=== PATIENT | female | born 1950 | race Caucasian/White ===

== ENCOUNTER 2017-12-26 19:31 | Inpatient (IN) | payer BC ==
[~2017-12-26] VITALS: Ht 157.5 cm; Wt 60.1 kg
[2017-12-26 20:00] VITALS: BP 105/55
[2017-12-26] MEDS ORDERED: ONDANSETRON HCL 4MG TABLET PO PRN (20:15)
[2017-12-26] MEDS: POLYETHYLENE GLYCOL 3350 (17GM) 1 DOSE PACK PO SCH (21:00)
[2017-12-26] MEDS: CLOTRIMAZOLE 1% CREAM 30GM TOP SCH (21:00)
[2017-12-26] MEDS: GUAIFENESIN 600MG ER TABLET PO SCH (22:56)
[2017-12-27] MEDS: IPRATROPIUM/ALBUTEROL 0.5-3(2.5)MG/3ML NEB HHN SCH ×6 (00:11→20:44)
[2017-12-27 07:29] LABS: HEMATOCRIT 41.5 % (36.0-48.0); MEAN CORPUSCULAR HEMOGLOBIN 29.5 pg (28.0-32.0); MEAN CORPUSCULAR VOLUME 87.1 fL (81.0-99.0); PLATELET 150 x1000/uL (130-400); RED BLOOD CELL COUNT 4.76 mill/uL (4.2-5.4); RED CELL DISTRIBUTION WIDTH 13.9 % (11.6-14.6)
[2017-12-27 08:00] VITALS: BP 105/61
[2017-12-27 08:07] LABS: CHLORIDE 104 mEq/L (98-107)
[2017-12-27 08:31] LABS: PREALBUMIN 28.4 mg/dL (20.0-40.0)
[2017-12-27] MEDS ORDERED: FUROSEMIDE 40MG/4ML VIAL IVP SCH (09:00)
[2017-12-27] MEDS: GUAIFENESIN 600MG ER TABLET PO SCH ×2 (09:17→22:17)
[2017-12-27] MEDS: DOCUSATE SODIUM 100MG CAPSULE PO SCH ×2 (09:17→17:56)
[2017-12-27] MEDS: POTASSIUM CHLORIDE 20MEQ/PACKET PO SCH (09:19)
[2017-12-27] MEDS: CLOTRIMAZOLE 1% CREAM 30GM TOP SCH ×2 (09:21→22:17)
[2017-12-27] MEDS: LEVOFLOXACIN 500MG TABLET PO SCH (11:04)
[2017-12-27 11:42] LABS: CLARITY URINE CLEAR (CLEAR); COLOR URINE YELLOW (YELLOW); KETONES URINE NEGATIVE (NEGATIVE); LEUKOCYTE ESTERASE URINE NEGATIVE (NEGATIVE); NITRITE URINE NEGATIVE (NEGATIVE); OCCULT BLOOD URINE 2+ (NEGATIVE); PH URINE 6.5 (4.5-8.0); PROTEIN URINE NEGATIVE (NEGATIVE); SPECIFIC GRAVITY URINE 1.012 (1.005-1.030); UROBILINOGEN URINE 0.2 E.U./dL (0.2-1.0)
[2017-12-27] MEDS: CARBIDOPA/LEVODOPA 25/100MG TABLET PO SCH ×2 (13:34→22:00)
[2017-12-27] MEDS ORDERED: POTASSIUM CHLORIDE 20MEQ TABLET SR PO SCH (14:00)
[2017-12-27] MEDS: ACETAMINOPHEN 500MG TABLET PO PRN (18:16)
[2017-12-27 20:00] VITALS: BP 99/57
[2017-12-27] MEDS: POLYETHYLENE GLYCOL 3350 (17GM) 1 DOSE PACK PO SCH (21:00)
[2017-12-28] MEDS: IPRATROPIUM/ALBUTEROL 0.5-3(2.5)MG/3ML NEB HHN SCH ×7 (00:39→23:51)
[2017-12-28] MEDS: CARBIDOPA/LEVODOPA 25/100MG TABLET PO SCH ×3 (06:00→22:00)
[2017-12-28 06:58] LABS: BASOPHILS % 0.8 % (0.0-2.0); EOSINOPHILS % 2.9 % (0.0-5.0); HEMATOCRIT. 41.6 % (36.0-48.0); HEMOGLOBIN. 14.1 g/dL (12.0-16.0); LYMPHOCYTES % 23.3 % (20.0-50.0); MEAN CORPUSCULAR HEMOGLOBIN 29.4 pg (28.0-32.0); MEAN PLATELET VOLUME 8.8 fl (7.4-10.4); MONOCYTES % 6.4 % (2.0-8.0); NEUTROPHILS % 66.6 % (40.0-76.0); PLATELET 161 x1000/uL (130-400); RED BLOOD CELL COUNT 4.79 mill/uL (4.2-5.4); RED CELL DISTRIBUTION WIDTH 13.7 % (11.6-14.6)
[2017-12-28 08:00] VITALS: BP 102/65
[2017-12-28 08:02] LABS: CHLORIDE 104 mEq/L (98-107)
[2017-12-28 08:17] LABS: FOLIC ACID (FOLATE) SERUM 11.3 ng/mL (>5.38)
[2017-12-28 08:35] LABS: HDL CHOLESTEROL 70 mg/dL (40-59)
[2017-12-28 08:36] LABS: PHOSPHORUS 3.8 mg/dL (2.5-4.9)
[2017-12-28 08:37] LABS: LDL CHOLESTEROL 77 mg/dL (5-100)
[2017-12-28 08:38] LABS: TOTAL IRON BINDING CAPACITY 245 ug/dL (250-450)
[2017-12-28] MEDS: ACETAMINOPHEN 500MG TABLET PO PRN (09:13)
[2017-12-28] MEDS: GUAIFENESIN 600MG ER TABLET PO SCH ×3 (09:13→21:41)
[2017-12-28] MEDS: DOCUSATE SODIUM 100MG CAPSULE PO SCH ×2 (09:13→16:21)
[2017-12-28] MEDS: POTASSIUM CHLORIDE 20MEQ/PACKET PO SCH (09:14)
[2017-12-28] MEDS: CLOTRIMAZOLE 1% CREAM 30GM TOP SCH ×2 (09:18→21:42)
[2017-12-28] MEDS: LEVOFLOXACIN 500MG TABLET PO SCH (11:26)
[2017-12-28] MEDS: CYANOCOBALAMIN 1000MCG/ML VIAL IM SCH (15:37)
[2017-12-28] MEDS: LIDOCAINE 5% PATCH TOP SCH (15:43)
[2017-12-28] MEDS: METHYL SALICYLATE/MENTHOL CREAM 85GM TOP SCH ×3 (15:44→21:42)
[2017-12-28 20:00] VITALS: BP 99/51
[2017-12-28] MEDS: POLYETHYLENE GLYCOL 3350 (17GM) 1 DOSE PACK PO SCH (21:00)
[2017-12-29] MEDS: IPRATROPIUM/ALBUTEROL 0.5-3(2.5)MG/3ML NEB HHN SCH ×5 (04:00→21:15)
[2017-12-29] MEDS: CARBIDOPA/LEVODOPA 25/100MG TABLET PO SCH ×3 (06:00→22:00)
[2017-12-29 07:41] LABS: T4 FREE 1.21 ng/dL (0.76-1.46)
[2017-12-29 08:00] VITALS: BP 107/51
[2017-12-29] MEDS: CLOTRIMAZOLE 1% CREAM 30GM TOP SCH ×2 (08:54→23:06)
[2017-12-29] MEDS: GUAIFENESIN 600MG ER TABLET PO SCH ×2 (08:54→23:05)
[2017-12-29] MEDS: POTASSIUM CHLORIDE 20MEQ/PACKET PO SCH (08:54)
[2017-12-29] MEDS: CYANOCOBALAMIN 1000MCG/ML VIAL IM SCH (08:54)
[2017-12-29] MEDS: DOCUSATE SODIUM 100MG CAPSULE PO SCH ×2 (08:54→16:29)
[2017-12-29] MEDS: LIDOCAINE 5% PATCH TOP SCH (08:56)
[2017-12-29] MEDS: METHYL SALICYLATE/MENTHOL CREAM 85GM TOP SCH ×3 (09:00→21:00)
[2017-12-29] MEDS ORDERED: BISACODYL 10MG SUPP PR SCH (09:45)
[2017-12-29] MEDS ORDERED: LACTULOSE 20G/30ML UDC PO SCH (10:00)
[2017-12-29 20:00] VITALS: BP 96/49
[2017-12-29] MEDS: POLYETHYLENE GLYCOL 3350 (17GM) 1 DOSE PACK PO SCH (21:00)
[2017-12-30] MEDS: IPRATROPIUM/ALBUTEROL 0.5-3(2.5)MG/3ML NEB HHN SCH ×6 (00:44→21:14)
[2017-12-30] MEDS: CARBIDOPA/LEVODOPA 25/100MG TABLET PO SCH ×3 (06:00→21:42)
[2017-12-30 08:29] VITALS: BP 109/61
[2017-12-30] MEDS: GUAIFENESIN 600MG ER TABLET PO SCH ×2 (08:43→21:42)
[2017-12-30] MEDS: DOCUSATE SODIUM 100MG CAPSULE PO SCH ×2 (08:43→17:05)
[2017-12-30] MEDS: CYANOCOBALAMIN 1000MCG/ML VIAL IM SCH (08:44)
[2017-12-30] MEDS: CLOTRIMAZOLE 1% CREAM 30GM TOP SCH ×2 (08:44→21:47)
[2017-12-30] MEDS: POTASSIUM CHLORIDE 20MEQ/PACKET PO SCH (08:44)
[2017-12-30] MEDS: METHYL SALICYLATE/MENTHOL CREAM 85GM TOP SCH ×3 (08:45→21:00)
[2017-12-30] MEDS: LIDOCAINE 5% PATCH TOP SCH (08:46)
[2017-12-30 20:00] VITALS: BP 97/50
[2017-12-30] MEDS: POLYETHYLENE GLYCOL 3350 (17GM) 1 DOSE PACK PO SCH (21:00)
[2017-12-31] MEDS: IPRATROPIUM/ALBUTEROL 0.5-3(2.5)MG/3ML NEB HHN SCH ×6 (00:17→20:01)
[2017-12-31] MEDS: CARBIDOPA/LEVODOPA 25/100MG TABLET PO SCH ×3 (06:04→22:13)
[2017-12-31 08:00] VITALS: BP 107/60
[2017-12-31] MEDS: GUAIFENESIN 600MG ER TABLET PO SCH ×2 (08:11→22:13)
[2017-12-31] MEDS: DOCUSATE SODIUM 100MG CAPSULE PO SCH ×2 (08:11→16:53)
[2017-12-31] MEDS: CYANOCOBALAMIN 1000MCG/ML VIAL IM SCH (08:11)
[2017-12-31] MEDS: CLOTRIMAZOLE 1% CREAM 30GM TOP SCH ×2 (08:12→22:18)
[2017-12-31] MEDS: POTASSIUM CHLORIDE 20MEQ/PACKET PO SCH (08:12)
[2017-12-31] MEDS: METHYL SALICYLATE/MENTHOL CREAM 85GM TOP SCH ×3 (08:13→21:00)
[2017-12-31] MEDS: LIDOCAINE 5% PATCH TOP SCH (09:39)
[2017-12-31 20:00] VITALS: BP 98/56
[2017-12-31] MEDS: POLYETHYLENE GLYCOL 3350 (17GM) 1 DOSE PACK PO SCH (21:00)
[2018-01-01] MEDS: IPRATROPIUM/ALBUTEROL 0.5-3(2.5)MG/3ML NEB HHN SCH ×6 (01:34→21:07)
[2018-01-01] MEDS: CARBIDOPA/LEVODOPA 25/100MG TABLET PO SCH ×3 (06:40→21:09)
[2018-01-01 06:58] LABS: BASOPHILS % 1.2 % (0.0-2.0); EOSINOPHILS % 2.8 % (0.0-5.0); HEMATOCRIT. 38.8 % (36.0-48.0); HEMOGLOBIN. 13.2 g/dL (12.0-16.0); LYMPHOCYTES % 22.9 % (20.0-50.0); MEAN CORPUSCULAR HEMOGLOBIN 29.8 pg (28.0-32.0); MEAN CORPUSCULAR VOLUME 87.6 fL (81.0-99.0); MEAN PLATELET VOLUME 8.5 fl (7.4-10.4); MONOCYTES % 7.1 % (2.0-8.0); PLATELET 152 x1000/uL (130-400); RED BLOOD CELL COUNT 4.43 mill/uL (4.2-5.4); RED CELL DISTRIBUTION WIDTH 13.7 % (11.6-14.6)
[2018-01-01 07:20] LABS: CHLORIDE 110 mEq/L (98-107)
[2018-01-01 08:00] VITALS: BP 98/59
[2018-01-01] MEDS: METHYL SALICYLATE/MENTHOL CREAM 85GM TOP SCH ×3 (09:00→21:00)
[2018-01-01] MEDS: CLOTRIMAZOLE 1% CREAM 30GM TOP SCH ×2 (09:01→21:10)
[2018-01-01] MEDS: GUAIFENESIN 600MG ER TABLET PO SCH ×2 (09:01→21:09)
[2018-01-01] MEDS: POTASSIUM CHLORIDE 20MEQ/PACKET PO SCH (09:01)
[2018-01-01] MEDS: DOCUSATE SODIUM 100MG CAPSULE PO SCH ×2 (09:01→17:22)
[2018-01-01] MEDS: LIDOCAINE 5% PATCH TOP SCH (09:02)
[2018-01-01 20:00] VITALS: BP 97/55
[2018-01-01] MEDS: POLYETHYLENE GLYCOL 3350 (17GM) 1 DOSE PACK PO SCH (21:00)
[2018-01-02] MEDS: IPRATROPIUM/ALBUTEROL 0.5-3(2.5)MG/3ML NEB HHN SCH ×6 (00:58→19:56)
[2018-01-02] MEDS: CARBIDOPA/LEVODOPA 25/100MG TABLET PO SCH ×3 (05:08→21:50)
[2018-01-02 08:00] VITALS: BP 107/51
[2018-01-02] MEDS: DOCUSATE SODIUM 100MG CAPSULE PO SCH ×2 (08:26→17:32)
[2018-01-02] MEDS: POTASSIUM CHLORIDE 20MEQ/PACKET PO SCH (08:26)
[2018-01-02] MEDS: GUAIFENESIN 600MG ER TABLET PO SCH ×2 (08:26→21:50)
[2018-01-02] MEDS: LIDOCAINE 5% PATCH TOP SCH (08:35)
[2018-01-02] MEDS: METHYL SALICYLATE/MENTHOL CREAM 85GM TOP SCH ×3 (08:36→21:00)
[2018-01-02] MEDS: CLOTRIMAZOLE 1% CREAM 30GM TOP SCH ×2 (08:36→21:51)
[2018-01-02 20:00] VITALS: BP 98/52
[2018-01-02] MEDS: POLYETHYLENE GLYCOL 3350 (17GM) 1 DOSE PACK PO SCH (21:00)
[2018-01-03] MEDS: IPRATROPIUM/ALBUTEROL 0.5-3(2.5)MG/3ML NEB HHN SCH ×6 (00:21→20:17)
[2018-01-03] MEDS: CARBIDOPA/LEVODOPA 25/100MG TABLET PO SCH ×3 (05:37→22:31)
[2018-01-03 08:00] VITALS: BP 103/60
[2018-01-03] MEDS: METHYL SALICYLATE/MENTHOL CREAM 85GM TOP SCH ×3 (09:00→21:00)
[2018-01-03] MEDS: CLOTRIMAZOLE 1% CREAM 30GM TOP SCH ×2 (09:21→22:31)
[2018-01-03] MEDS: GUAIFENESIN 600MG ER TABLET PO SCH ×2 (09:21→22:30)
[2018-01-03] MEDS: DOCUSATE SODIUM 100MG CAPSULE PO SCH ×2 (09:21→17:00)
[2018-01-03] MEDS: POTASSIUM CHLORIDE 20MEQ/PACKET PO SCH (09:21)
[2018-01-03] MEDS: LIDOCAINE 5% PATCH TOP SCH (09:22)
[2018-01-03 17:08] LABS: 25-HYDROXY VITAMIN D3 24 ng/mL (.)
[2018-01-03 20:00] VITALS: BP 97/57
[2018-01-03] MEDS: POLYETHYLENE GLYCOL 3350 (17GM) 1 DOSE PACK PO SCH (21:00)
[2018-01-04] MEDS: IPRATROPIUM/ALBUTEROL 0.5-3(2.5)MG/3ML NEB HHN SCH ×5 (00:57→20:25)
[2018-01-04] MEDS: CARBIDOPA/LEVODOPA 25/100MG TABLET PO SCH ×3 (05:52→21:58)
[2018-01-04 08:00] VITALS: BP 102/58
[2018-01-04] MEDS: DOCUSATE SODIUM 100MG CAPSULE PO SCH ×3 (09:00→17:00)
[2018-01-04] MEDS: METHYL SALICYLATE/MENTHOL CREAM 85GM TOP SCH ×3 (09:00→21:00)
[2018-01-04] MEDS: GUAIFENESIN 600MG ER TABLET PO SCH ×2 (09:25→21:58)
[2018-01-04] MEDS: POTASSIUM CHLORIDE 20MEQ/PACKET PO SCH (09:25)
[2018-01-04] MEDS: LIDOCAINE 5% PATCH TOP SCH (09:27)
[2018-01-04] MEDS: CLOTRIMAZOLE 1% CREAM 30GM TOP SCH ×2 (09:27→21:59)
[2018-01-04] MEDS ORDERED: ERGOCALCIFEROL 50000UNITS CAPSULE PO SCH (14:15)
[2018-01-04 20:00] VITALS: BP 110/67
[2018-01-04] MEDS: POLYETHYLENE GLYCOL 3350 (17GM) 1 DOSE PACK PO SCH (21:00)
[2018-01-05] MEDS: CARBIDOPA/LEVODOPA 25/100MG TABLET PO SCH ×3 (06:33→21:10)
[2018-01-05 07:00] LABS: BASOPHILS % 0.9 % (0.0-2.0); EOSINOPHILS % 2.5 % (0.0-5.0); HEMATOCRIT. 37.4 % (36.0-48.0); HEMOGLOBIN. 12.7 g/dL (12.0-16.0); LYMPHOCYTES % 17.4 % (20.0-50.0); MEAN CORPUSCULAR HEMOGLOBIN 29.8 pg (28.0-32.0); MEAN CORPUSCULAR VOLUME 87.7 fL (81.0-99.0); MEAN PLATELET VOLUME 8.2 fl (7.4-10.4); NEUTROPHILS % 73.2 % (40.0-76.0); PLATELET 154 x1000/uL (130-400); RED BLOOD CELL COUNT 4.27 mill/uL (4.2-5.4); RED CELL DISTRIBUTION WIDTH 13.7 % (11.6-14.6)
[2018-01-05 07:04] LABS: CHLORIDE 108 mEq/L (98-107)
[2018-01-05 08:00] VITALS: BP 114/65
[2018-01-05] MEDS: GUAIFENESIN 600MG ER TABLET PO SCH ×2 (09:00→21:10)
[2018-01-05] MEDS: METHYL SALICYLATE/MENTHOL CREAM 85GM TOP SCH ×3 (09:00→21:00)
[2018-01-05] MEDS: DOCUSATE SODIUM 100MG CAPSULE PO SCH ×2 (09:00→17:36)
[2018-01-05] MEDS: LIDOCAINE 5% PATCH TOP SCH (09:01)
[2018-01-05] MEDS: CLOTRIMAZOLE 1% CREAM 30GM TOP SCH ×2 (09:01→21:31)
[2018-01-05] MEDS: POTASSIUM CHLORIDE 20MEQ/PACKET PO SCH (09:01)
[2018-01-05] MEDS: IPRATROPIUM/ALBUTEROL 0.5-3(2.5)MG/3ML NEB HHN SCH ×4 (11:23→21:39)
[2018-01-05 14:15] LABS: CLARITY URINE CLEAR (CLEAR); COLOR URINE YELLOW (YELLOW); KETONES URINE NEGATIVE (NEGATIVE); LEUKOCYTE ESTERASE URINE TRACE (NEGATIVE); NITRITE URINE NEGATIVE (NEGATIVE); OCCULT BLOOD URINE 1+ (NEGATIVE); PH URINE 5.5 (4.5-8.0); PROTEIN URINE NEGATIVE (NEGATIVE); SPECIFIC GRAVITY URINE 1.015 (1.005-1.030); UROBILINOGEN URINE 0.2 E.U./dL (0.2-1.0)
[2018-01-05 20:00] VITALS: BP 97/53
[2018-01-05] MEDS: POLYETHYLENE GLYCOL 3350 (17GM) 1 DOSE PACK PO SCH (21:00)
[2018-01-06] MEDS: CARBIDOPA/LEVODOPA 25/100MG TABLET PO SCH ×3 (05:08→21:03)
[2018-01-06 08:00] VITALS: BP 107/58
[2018-01-06] MEDS: METHYL SALICYLATE/MENTHOL CREAM 85GM TOP SCH ×3 (09:00→21:00)
[2018-01-06] MEDS: IPRATROPIUM/ALBUTEROL 0.5-3(2.5)MG/3ML NEB HHN SCH ×5 (09:33→19:54)
[2018-01-06] MEDS: POTASSIUM CHLORIDE 20MEQ/PACKET PO SCH (09:40)
[2018-01-06] MEDS: DOCUSATE SODIUM 100MG CAPSULE PO SCH ×2 (09:40→17:49)
[2018-01-06] MEDS: GUAIFENESIN 600MG ER TABLET PO SCH ×2 (09:40→21:03)
[2018-01-06] MEDS: LIDOCAINE 5% PATCH TOP SCH (09:41)
[2018-01-06] MEDS: OXYBUTYNIN CHLORIDE 5MG TABLET PO SCH ×2 (09:47→21:03)
[2018-01-06] MEDS: CLOTRIMAZOLE 1% CREAM 30GM TOP SCH ×2 (09:48→21:04)
[2018-01-06 20:00] VITALS: BP 99/55
[2018-01-06] MEDS: POLYETHYLENE GLYCOL 3350 (17GM) 1 DOSE PACK PO SCH (21:00)
[2018-01-06] MEDS ORDERED: IPRATROPIUM/ALBUTEROL 0.5-3(2.5)MG/3ML NEB HHN PRN (21:00)
[2018-01-07] MEDS: CARBIDOPA/LEVODOPA 25/100MG TABLET PO SCH ×3 (05:14→22:22)
[2018-01-07 08:00] VITALS: BP 92/46
[2018-01-07] MEDS: DOCUSATE SODIUM 100MG CAPSULE PO SCH ×2 (10:47→18:55)
[2018-01-07] MEDS: OXYBUTYNIN CHLORIDE 5MG TABLET PO SCH ×2 (10:48→22:22)
[2018-01-07] MEDS: GUAIFENESIN 600MG ER TABLET PO SCH ×2 (10:48→22:22)
[2018-01-07] MEDS: POTASSIUM CHLORIDE 20MEQ/PACKET PO SCH (10:48)
[2018-01-07] MEDS: LIDOCAINE 5% PATCH TOP SCH (12:05)
[2018-01-07] MEDS: METHYL SALICYLATE/MENTHOL CREAM 85GM TOP SCH ×3 (12:06→21:00)
[2018-01-07] MEDS: CLOTRIMAZOLE 1% CREAM 30GM TOP SCH ×2 (12:06→22:24)
[2018-01-07] MEDS: IPRATROPIUM/ALBUTEROL 0.5-3(2.5)MG/3ML NEB HHN SCH ×2 (12:07→21:30)
[2018-01-07] MEDS ORDERED: LACTULOSE 20G/30ML UDC PO SCH (13:00)
[2018-01-07 20:00] VITALS: BP 147/89
[2018-01-07] MEDS: POLYETHYLENE GLYCOL 3350 (17GM) 1 DOSE PACK PO SCH (21:00)
[2018-01-08] MEDS: CARBIDOPA/LEVODOPA 25/100MG TABLET PO SCH ×3 (06:36→21:02)
[2018-01-08] MEDS: IPRATROPIUM/ALBUTEROL 0.5-3(2.5)MG/3ML NEB HHN SCH ×3 (07:45→21:14)
[2018-01-08 08:00] VITALS: BP 95/56
[2018-01-08] MEDS: METHYL SALICYLATE/MENTHOL CREAM 85GM TOP SCH ×3 (09:00→21:00)
[2018-01-08] MEDS: GUAIFENESIN 600MG ER TABLET PO SCH ×2 (10:05→21:02)
[2018-01-08] MEDS: OXYBUTYNIN CHLORIDE 5MG TABLET PO SCH ×2 (10:05→21:02)
[2018-01-08] MEDS: POTASSIUM CHLORIDE 20MEQ/PACKET PO SCH (10:06)
[2018-01-08] MEDS: DOCUSATE SODIUM 100MG CAPSULE PO SCH ×2 (10:06→17:45)
[2018-01-08] MEDS: CLOTRIMAZOLE 1% CREAM 30GM TOP SCH ×2 (10:07→21:02)
[2018-01-08] MEDS: LIDOCAINE 5% PATCH TOP SCH (10:08)
[2018-01-08 20:00] VITALS: BP 95/89
[2018-01-08] MEDS: POLYETHYLENE GLYCOL 3350 (17GM) 1 DOSE PACK PO SCH (21:00)
[2018-01-09] MEDS: CARBIDOPA/LEVODOPA 25/100MG TABLET PO SCH ×2 (05:19→14:00)
[2018-01-09 08:16] VITALS: BP 107/54
[2018-01-09] MEDS: POTASSIUM CHLORIDE 20MEQ/PACKET PO SCH (08:25)
[2018-01-09] MEDS: DOCUSATE SODIUM 100MG CAPSULE PO SCH (08:25)
[2018-01-09] MEDS: GUAIFENESIN 600MG ER TABLET PO SCH (08:25)
[2018-01-09] MEDS: OXYBUTYNIN CHLORIDE 5MG TABLET PO SCH (08:25)
[2018-01-09] MEDS: METHYL SALICYLATE/MENTHOL CREAM 85GM TOP SCH ×2 (08:26→14:57)
[2018-01-09] MEDS: LIDOCAINE 5% PATCH TOP SCH (08:26)
[2018-01-09] MEDS: CLOTRIMAZOLE 1% CREAM 30GM TOP SCH (08:27)
[2018-01-09] MEDS: IPRATROPIUM/ALBUTEROL 0.5-3(2.5)MG/3ML NEB HHN SCH ×2 (09:54→12:32)
[2018-01-09 10:31] VITALS: BP 107/54
== END 2018-01-09 15:37 | disposition home health service (06) | DRG 57 ==
PROVIDERS: ADMIT Physical Medicine & Rehabilitation Spinal Cord Injury Medicine; ATTEND Family Medicine Adult Medicine
DX: G20 Parkinson's disease (principal); L03.115 Cellulitis of right lower limb; B35.1 Tinea unguium; M13.80 Other specified arthritis, unspecified site; E55.9 Vitamin D deficiency, unspecified; B35.3 Tinea pedis; N39.0 Urinary tract infection, site not specified; F06.31 Mood disorder due to known physiological condition with depressive features; I10 Essential (primary) hypertension; G25.2 Other specified forms of tremor; R53.81 Other malaise; R26.9 Unspecified abnormalities of gait and mobility; M75.101 Unspecified rotator cuff tear or rupture of right shoulder, not specified as traumatic; M75.01 Adhesive capsulitis of right shoulder; M79.609 Pain in unspecified limb; R32 Unspecified urinary incontinence; M21.961 Unspecified acquired deformity of right lower leg; M21.40 Flat foot [pes planus] (acquired), unspecified foot; M20.5X9 Other deformities of toe(s) (acquired), unspecified foot; M75.102 Unspecified rotator cuff tear or rupture of left shoulder, not specified as traumatic; M19.90 Unspecified osteoarthritis, unspecified site; L60.0 Ingrowing nail; M20.5X2 Other deformities of toe(s) (acquired), left foot; L60.3 Nail dystrophy; N39.41 Urge incontinence; R35.1 Nocturia; R39.15 Urgency of urination; Z87.81 Personal history of (healed) traumatic fracture; Z80.9 Family history of malignant neoplasm, unspecified
CPT/HCPCS: 36415; 80048; 80053; 80061; 81003; 82270; 82306; 82607; 82728; 82746; 83036; 83540; 83550; 83735; 84100; 84134; 84439; 84443; 84481; 84630; 85025; 85027; 87086; 92523; 93970; 93971; 94640; 97110; 97112; 97116; 97127; 97163; 97166; 97530; 97535; G0515; J1940; J3420; J7620